=== PATIENT | female | born 1970 | race Caucasian/White ===

== ENCOUNTER → 2017-11-22 | Outpatient (CLI) | payer OTHER ==
--- NOTE | 2017-11-26 08:40 | RAD ---
DATE: 11/22/2017 11:30 AM EXAM: MAMMO ANIKA SCREENING BILATERAL HISTORY: routine screening evaluation. COMPARISON: 09/14/2010 Bilateral CC and MLO views of the breasts were performed. Bilateral breast tomosynthesis was performed in CC and MLO projections. This study was interpreted with the benefit of Computerized Aided Detection (CAD ). Breast Density: The breast parenchyma is heterogeneously dense, which could reduce sensitivity of mammography. Breast parenchyma level C. FINDINGS: Benign calcifications are present. No suspicious masses, microcalcifications or architectural distortion is present to suggest malignancy in either breast. The visualized axillae are unremarkable. IMPRESSION: No mammographic evidence of malignancy. BI-RADS CATEGORY: 2 BENIGN FINDING(S) RECOMMENDED FOLLOW-UP: 12M 12 MONTH FOLLOW-UP Annual screening mammography is recommended, unless clinically indicated sooner based on symptoms or change in physical exam. PQRS compliance statement: Patient information was entered into a reminder system with a target due date for the next mammogram. Mammography is a sensitive method for finding small breast cancers, but it does not detect them all and is not a substitute for careful clinical examination. A negative mammogram does not negate a clinically suspicious finding and should not result in delay in biopsying a clinically suspicious abnormality. "Our facility is accredited by the [employer] Mammography [employer]." NANYD
== END | disposition home or self-care (01) ==
LOC: MAMMO 09:29
PROVIDERS: ATTEND Family Medicine
DX: Z12.31 Encounter for screening mammogram for malignant neoplasm of breast (principal)
CPT/HCPCS: 77063; 77067

== ENCOUNTER → 2019-11-30 | Outpatient (CLI) | payer OTHER ==
--- NOTE | 2019-11-30 10:49 | RAD ---
DATE: 11/30/2019 8:32 AM EXAM: DIGITAL SCREEN BILAT W/CAD HISTORY: Screening COMPARISON: 11/22/2017 Bilateral full field craniocaudal and mediolateral oblique images were obtained using digital technique. FINDINGS: Breast Density: HETERO The breast parenchyma Is heterogeneously dense, which could reduce sensitivity of mammography. Breast parenchyma level C No suspicious masses, microcalcifications or architectural distortion is present to suggest malignancy in either breast. The visualized axillae are unremarkable. IMPRESSION: No mammographic evidence of malignancy. BI-RADS CATEGORY: 1 NEGATIVE RECOMMENDED FOLLOW-UP: 12M 12 MONTH FOLLOW-UP Annual screening mammography is recommended, unless clinically indicated sooner based on symptoms or change in physical exam. PQRS compliance statement: Patient information was entered into a reminder system with a target due date for the next mammogram. Mammography is a sensitive method for finding small breast cancers, but it does not detect them all and is not a substitute for careful clinical examination. A negative mammogram does not negate a clinically suspicious finding and should not result in delay in biopsying a clinically suspicious abnormality. "Our facility is accredited by the [employer] Mammography [employer]."
== END ==
LOC: MAMMO 08:28
PROVIDERS: ATTEND Family Medicine
DX: Z12.31 Encounter for screening mammogram for malignant neoplasm of breast (principal)
CPT/HCPCS: 77067

== ENCOUNTER → 2020-12-01 | Outpatient (CLI) | payer OTHER ==
--- NOTE | 2020-12-01 09:08 | RAD ---
EXAM: Bilateral digital screening mammogram with tomosynthesis. HISTORY: 50-year-old female presents for screening mammography. TECHNIQUE: Full-field digital craniocaudal and mediolateral oblique 2D and 3D tomosynthesis images of both breasts are obtained for evaluation. Computer aided detection was applied. COMPARISON: 11/30/2019 and 11/22/2017 BREAST PARENCHYMAL DENSITY: Level C - Heterogeneously dense. FINDINGS: There is a nodular asymmetry within the posterior aspect of the right breast at the nipple line in the craniocaudal projection which is more conspicuous compared to prior studies. There are ad ditional areas of asymmetry and nodularity which are stable in appearance. There is no architectural distortion. IMPRESSION: BI-RADS Category 0: Incomplete. Additional imaging needed. RECOMMENDATION: Further evaluation with a full field true lateral view and spot compression view of t he right breast to assess nodularity within the posterior breast at the nipple line is recommended. S onographic imaging can also be performed if deemed indicated based on additional mammographic finding s. If your mammogram demonstrates that you have dense breast tissue, which could hide abnormalities, and if you have other risk factors for breast cancer that have been identified, you might benefit from s upplemental screening tests that may be suggested by your ordering physician. Dense breast tissue, i n and of itself, is a relatively common condition. This information is not provided to cause undue c oncern, but rather to raise your awareness and to promote discussion with your physician regarding th e presence of other risk factors, in addition to dense breast tissue. A report of your mammography re sults will be sent to you and your physician. You should contact your physician if you have any ques tions or concerns regarding this report. Mammography is a sensitive method for finding small breast cancers, but it does not detect them all a nd is not a substitute for careful clinical examination. A negative mammogram does not negate a clin ically suspicious finding and should not result in delay in biopsying a clinically suspicious abnorma lity. PQRS compliance statement - Patient information was entered into a reminder system with a target due date for the next mammogram. "Our facility is accredited by the [employer] Mammography [employer]." Electronically signed by: Sana Grace MD (12/01/2020 9:06 AM) [id number]
== END ==
LOC: MAMMO 08:03
PROVIDERS: ATTEND Family Medicine
DX: Z12.31 Encounter for screening mammogram for malignant neoplasm of breast (principal)
CPT/HCPCS: 77063; 77067

== ENCOUNTER → 2020-12-20 | Outpatient (CLI) | payer OTHER ==
--- NOTE | 2020-12-20 11:00 | RAD ---
EXAM: Right breast diagnostic mammogram; right breast sonogram. HISTORY: 50-year-old female presents for evaluation of nodularity within the right breast demonstrate d on a screening mammogram dated 2020. TECHNIQUE: Full-field digital true lateral and spot compression craniocaudal views of the right breas t are obtained. COMPARISON: 12/01/2020, 11/30/2019, 11/22/2017 BREAST PARENCHYMAL DENSITY: Level C - Heterogeneously dense. FINDINGS: There is a persistent nodular density within the posterior aspect of the right breast at th e nipple line on the spot compression image. This is not conspicuous in the true lateral projection. This appears to be respectively stable compared to a study performed 11/22/2017, favoring benignity. T here are benign calcifications. There is no architectural distortion. Sonographic imaging of the right breast demonstrates a 5 mm complicated cyst or benign fibrocystic le leti at the 6:00 position 5 cm from the nipple. This does not correspond with location of mammographi c nodularity. There is no suspicious sonographic finding. IMPRESSION: 1. Small nodular density within the posterior right breast at the nipple line which demonstrates no s uspicious sonographic correlate. The 3 year course of mammographic stability and imaging appearance f avors benignity. 2.Small benign complicated cyst or benign cystic lesion at the 6:00 position of the right breast. 3. BI-RADS Category 3: Probably benign finding(s). Precautionary short term follow up with a diagnost ic right breast mammogram and sonogram in 6 months is recommended. If your mammogram demonstrates that you have dense breast tissue, which could hide abnormalities, and if you have other risk factors for breast cancer that have been identified, you might benefit from s upplemental screening tests that may be suggested by your ordering physician. Dense breast tissue, i n and of itself, is a relatively common condition. This information is not provided to cause undue c oncern, but rather to raise your awareness and to promote discussion with your physician regarding th e presence of other risk factors, in addition to dense breast tissue. A report of your mammography re sults will be sent to you and your physician. You should contact your physician if you have any ques tions or concerns regarding this report. Mammography is a sensitive method for finding small breast cancers, but it does not detect them all a nd is not a substitute for careful clinical examination. A negative mammogram does not negate a clin ically suspicious finding and should not result in delay in biopsying a clinically suspicious abnorma lity. PQRS compliance statement - Patient information was entered into a reminder system with a target due date for the next mammogram. "Our facility is accredited by the [employer] Mammography [employer]." Electronically signed by: Sana Grace MD (12/20/2020 10:57 AM) [id number]
== END ==
LOC: MAMMO 10:04
PROVIDERS: ATTEND Family Medicine
DX: N63.10 Unspecified lump in the right breast, unspecified quadrant (principal); R92.2 Inconclusive mammogram
CPT/HCPCS: 76641; 77065

== ENCOUNTER → 2021-06-19 | Outpatient (CLI) | payer OTHER ==
--- NOTE | 2021-06-19 10:54 | RAD ---
EXAM: Right breast digital diagnostic mammogram with tomosynthesis; right breast sonogram. HISTORY: 50-year-old female presents for evaluation of nodularity within the right breast demonstrate d on a mammogram dated 12/20/2020 and 12/01/2020. TECHNIQUE: Full-field digital craniocaudal and mediolateral oblique 2D and 3D tomosynthesis images of the right breast are obtained for evaluation. Computer aided detection was applied. Sonographic imag ing of the right breast targeted to the site of mammographic nodularity was also performed. COMPARISON: 12/20/2020, 12/01/2020, 11/30/2019, 11/22/2017 BREAST PARENCHYMAL DENSITY: Level C - Heterogeneously dense. FINDINGS: The previously demonstrated nodular density within the posterior 12:00 position of the righ t breast is less conspicuous on the current exam. No new lesion is seen. There are a few benign calci fications. There is no architectural distortion. Sonographic imaging of the right breast demonstrates a tiny cyst at the 12:30 position 6.5 cm from th e nipple measuring 4 mm, possibly corresponding with the mammographic finding of concern. There is no suspicious sonographic finding. IMPRESSION: 1. Tiny cyst within the 12:30 position of the right breast, possibly corresponding with mammographic nodularity demonstrated on prior exams. This is less conspicuous on the current mammogram, favoring b enignity. There is no new suspicious mammographic or sonographic finding. 2. BI-RADS Category 2: Benign finding(s). RECOMMENDATION: The patient will be due for bilateral mammography in 5 months according to a previous ly established mammography interval. If your mammogram demonstrates that you have dense breast tissue, which could hide abnormalities, and if you have other risk factors for breast cancer that have been identified, you might benefit from s upplemental screening tests that may be suggested by your ordering physician. Dense breast tissue, i n and of itself, is a relatively common condition. This information is not provided to cause undue c oncern, but rather to raise your awareness and to promote discussion with your physician regarding th e presence of other risk factors, in addition to dense breast tissue. A report of your mammography re sults will be sent to you and your physician. You should contact your physician if you have any ques tions or concerns regarding this report. Mammography is a sensitive method for finding small breast cancers, but it does not detect them all a nd is not a substitute for careful clinical examination. A negative mammogram does not negate a clin ically suspicious finding and should not result in delay in biopsying a clinically suspicious abnorma lity. PQRS compliance statement - Patient information was entered into a reminder system with a target due date for the next mammogram. "Our facility is accredited by the [employer] Mammography [employer]." Electronically signed by: Sana Grace MD (06/19/2021 10:52 AM) [id number]
== END ==
LOC: MAMMO 10:14
PROVIDERS: ATTEND Family Medicine
DX: N64.89 Other specified disorders of breast (principal); R92.1 Mammographic calcification found on diagnostic imaging of breast
CPT/HCPCS: 76641; 77065; G0279; 77061